=== PATIENT | female | born 1995 | race Caucasian/White ===

== ENCOUNTER 2016-09-03 17:08 | Emergency (ER) | payer BC ==
[~2016-09-03] VITALS: Ht 165.1 cm; Wt 86.3 kg
[~2016-09-03 17:08] MED LIST: BIOTIN1000 MICRO PO; BIOTIN2500 MCG PO; CRANBERRY; CRANBERRY500 MG PO; NAPROXEN500 MG PO; OXAYDO5 MG PO; PANTOPRAZOLE SO40 MG PO; RELPAX20 MG; SINGULAIR10 MG PO; SINGULAIR5 MG PO; TOPAMAX100 MG PO; TORADOL10 MG PO; TRILEPTAL600 MG PO; VICODIN,LORT1 TABLET; ZARONTIN250 MG PO; ZOFRAN ODT4 MG PO; ZYRTEC10 M2 PO
[2016-09-03] MEDS ORDERED: MOTRIN600 MG PO (18:02)
[2016-09-03 18:23] VITALS: BP 121/78
== END 2016-09-03 18:24 | disposition home or self-care (01) ==
LOC: EME 17:08
DX: S43.101A Unspecified dislocation of right acromioclavicular joint, initial encounter (principal); X50.9XXA Other and unspecified overexertion or strenuous movements or postures, initial encounter; G40.909 Epilepsy, unspecified, not intractable, without status epilepticus; Z88.7 Allergy status to serum and vaccine
CPT/HCPCS: 73030; 73080; 99281; 99283

== ENCOUNTER 2016-11-02 23:48 | Emergency (ER) | payer BC ==
[~2016-11-02] VITALS: Ht 165.1 cm; Wt 93.5 kg
[~2016-11-02 23:48] MED LIST changes: +MOTRIN600 MG PO
[2016-11-03 02:48] VITALS: BP 116/79
== END 2016-11-03 03:09 | disposition home or self-care (01) ==
LOC: EME 23:48
DX: G43.909 Migraine, unspecified, not intractable, without status migrainosus (principal)
CPT/HCPCS: 99281; 99285; J1200; J1885; J2765; J7030

== ENCOUNTER 2016-12-17 04:54 | Emergency (ER) | payer BC ==
[~2016-12-17] VITALS: Ht 165.1 cm; Wt 93.5 kg
[2016-12-17 05:56] LABS: CHLORIDE 108 mEq/L (99-109); POTASSIUM 3.7 mEq/L (3.7-5.4); SODIUM 144 mEq/L (136-147)
[2016-12-17 05:58] LABS: GLUCOSE 87 mg/dL (70-99)
[2016-12-17 05:59] LABS: ANION GAP 10 MEQ/L (2-14)
[2016-12-17 06:02] LABS: GFR ESTIMATE (CALCULATED) > 59 mL/min/
[2016-12-17 06:03] LABS: UREA NITROGEN (BUN) 9 mg/dL (9-23)
[2016-12-17 06:35] LABS: QUANTITATIVE HCG < 4.0 MIU/ML
[2016-12-17 06:41] LABS: ADD MIUA? YES; BILIRUBIN NEGATIVE; BLOOD NEGATIVE; COLOR AMBER ((YELLOW)); GLUCOSE (STRIP) NEGATIVE; KETONES NEGATIVE; LEUKOCYTES SMALL; NITRITE NEGATIVE; PROTEIN (STRIP) NEGATIVE; SPECIFIC GRAVITY 1.021 (1.000-1.030)
[2016-12-17 06:56] LABS: BACTERIA RARE /HPF; EPITHELIAL CELLS 4+ /HPF; MUCUS 4+ /LPF
[2016-12-17] MEDS ORDERED: FLEXERIL10 MG PO (09:19)
[2016-12-17] MEDS ORDERED: ULTRAM50 MG PO (09:19)
[2016-12-17] MEDS ORDERED: BACTRIM,SEPT1 TABLET PO (09:19)
[2016-12-17 09:37] VITALS: BP 113/72
== END 2016-12-17 09:50 | disposition home or self-care (01) ==
LOC: EME 04:54
PROVIDERS: Physician Assistant
DX: N20.0 Calculus of kidney (principal); N39.0 Urinary tract infection, site not specified; R56.9 Unspecified convulsions; Z87.442 Personal history of urinary calculi
CPT/HCPCS: 74000; 76770; 80048; 81003; 84702; 99281; 99285; J1885; J2270; J7030

== ENCOUNTER 2017-01-13 08:43 | Emergency (ER) | payer BC ==
[~2017-01-13] VITALS: Ht 152.4 cm; Wt 97.0 kg
[~2017-01-13 08:43] MED LIST changes: +BACTRIM,SEPT1 TABLET PO; +FLEXERIL10 MG PO; +ULTRAM50 MG PO
[2017-01-13 09:14] LABS: ADD MIUA? YES; BILIRUBIN NEGATIVE; BLOOD NEGATIVE; COLOR YELLOW ((YELLOW)); GLUCOSE (STRIP) NEGATIVE; KETONES NEGATIVE; LEUKOCYTES NEGATIVE; NITRITE NEGATIVE; PROTEIN (STRIP) NEGATIVE; SPECIFIC GRAVITY 1.027 (1.000-1.030); UROBILINOGEN 0.2 MG/DL (0.2-1.0)
[2017-01-13] MEDS ORDERED: LAMICTAL100 MG PO (09:26)
[2017-01-13] MEDS ORDERED: OXTELLAR XR600 MG PO (09:26)
[2017-01-13] MEDS ORDERED: ETHOSUXIMIDE250 MG PO (09:27)
[2017-01-13] MEDS ORDERED: JUNEL FE 1/21 TABLET PO (09:27)
[2017-01-13 09:29] LABS: EOSINOPHIL (%) 0.6 % (0-5); EOSINOPHIL COUNT 0.1 K/uL (0-0.3); HEMATOCRIT 43.5 % (36.0-46.0); IMMATURE GRANULOCYTE (%) 0.4 % (0.0-0.7); INSTRUMENT ABS NEUTROPHIL CT 5.2 K/uL; LYMPHOCYTE COUNT 1.7 K/uL (1.0-2.8); MCH 27.9 PG (29.0-34.0); MCHC 32.4 G/DL (30.0-36.0); MCV 86.1 FL (83-99); MEAN PLAT.VOLUME 8.9 uM^3 (9.5-12.4); MONOCYTE (%) 9.7 % (3-12); MONOCYTE COUNT 0.8 K/uL (0-0.8); NEUTROPHIL (%) 66.9 % (45-76); NEUTROPHIL COUNT 5.2 K/uL (1.8-6.4); PLATELET COUNT 349 K/uL (156-360); RBC DIS.WIDTH-CV 12.4 % (11.8-14.6); RBC DIS.WIDTH-SD 38.9 % (39-53); RED BLOOD COUNT 5.05 M/uL (3.80-5.20); WHITE BLOOD COUNT 7.7 K/uL (4.1-10.2)
[2017-01-13 09:42] LABS: CHLORIDE 107 mEq/L (99-109); POTASSIUM 3.7 mEq/L (3.7-5.4); SODIUM 141 mEq/L (136-147)
[2017-01-13 09:44] LABS: GLUCOSE 94 mg/dL (70-99)
[2017-01-13 09:46] LABS: ANION GAP 13 MEQ/L (2-14); TOTAL BILIRUBIN 0.5 mg/dL (0.0-1.0)
[2017-01-13 09:48] LABS: ALKALINE PHOSPHATASE 86 IU/L (3-129); GFR ESTIMATE (CALCULATED) > 59 mL/min/
[2017-01-13 09:49] LABS: UREA NITROGEN (BUN) 7 mg/dL (9-23)
[2017-01-13 09:57] LABS: BACTERIA RARE /HPF; CALCIUM OXALATE CRYSTALS 1+ /HPF; EPITHELIAL CELLS 1+ /HPF; HYALINE CASTS 0-5 /LPF; MUCUS 1+ /LPF; UCUL ADDED? NO; WHITE BLOOD CELLS NONE SEEN /HPF (0-5)
[2017-01-13 09:57] LABS: QUANTITATIVE HCG < 4.0 MIU/ML
[2017-01-13] MEDS ORDERED: ZOFRAN ODT4 MG PO (11:45)
[2017-01-13 13:14] VITALS: BP 130/88
== END 2017-01-13 13:15 | disposition home or self-care (01) ==
LOC: EME 08:43
PROVIDERS: Physician Assistant
DX: K52.9 Noninfective gastroenteritis and colitis, unspecified (principal); E86.0 Dehydration; I95.1 Orthostatic hypotension; R56.9 Unspecified convulsions
CPT/HCPCS: 76705; 80048; 80053; 81003; 84702; 85025; 85027; 99281; 99285; J7120

== ENCOUNTER 2017-05-14 19:26 | Emergency (ER) | payer BC ==
[~2017-05-14] VITALS: Ht 165.1 cm; Wt 97.3 kg
[~2017-05-14 19:26] MED LIST changes: +ETHOSUXIMIDE250 MG PO; +JUNEL FE 1/21 TABLET PO; +LAMICTAL100 MG PO; +OXTELLAR XR600 MG PO
[2017-05-14 20:37] VITALS: BP 118/84
== END 2017-05-14 20:38 | disposition home or self-care (01) ==
LOC: EME 19:26
DX: S61.201A Unspecified open wound of left index finger without damage to nail, initial encounter (principal); W26.0XXA Contact with knife, initial encounter; Y93.G3 Activity, cooking and baking; Z88.0 Allergy status to penicillin